=== PATIENT | female | born 1975 | race Caucasian/White ===

== ENCOUNTER 2019-01-09 14:33 | Emergency (ER) | payer OTHER ==
[~2019-01-09] VITALS: Ht 170.2 cm; Wt 86.9 kg
[~2019-01-09 14:33] MED LIST: AMOXICILLIN 50500 M1 PO; APAP/CODEINE ELI5 M1 OR; MACROBID 100 M100 M1 PO; NOHOMEMEDICATIONS; PREDNISONE 20 M20 MG PO; VENTOLIN17 GM INH; ZPAK PO
[2019-01-09] MEDS ORDERED: FLEXERIL PO (15:02)
[2019-01-09 15:12] LABS: URINE BILIRUBIN NEGATIVE (Negative); URINE BLOOD 3+ (Negative); URINE CLARITY CLEAR; URINE COLOR YELLOW; URINE GLUCOSE-RANDOM* NEGATIVE (Negative); URINE KETONES NEGATIVE (Negative); URINE LEUKOCYTES-REFLEX 2+ (Negative); URINE NITRITE-REFLEX POSITIVE (Negative); URINE PROTEIN (DIPSTICK) NEGATIVE (Negative); URINE SPECIFIC GRAVITY 1.025 (1.005-1.035); URINE UROBILINOGEN 0.2 E.U./dl (0.2-1.0)
[2019-01-09 15:15] LABS: ABSOLUTE NEUTROPHILS 8.6 thou/uL (1.4-8.2); BASOPHILS 0.2 % (0.0-2.0); EOSINOPHILS 0.9 % (0.0-3.0); HEMATOCRIT 42.2 % (37.0-47.0); HEMOGLOBIN 14.4 gm/dL (12.0-15.0); LYMPHOCYTES 21.2 % (24.0-44.0); MCHC 34.2 g/dL (28.0-37.0); MCV 96.6 fL (80.0-100.0); MONOCYTES 7.1 % (1.0-8.0); PLATELET COUNT 273 thou/uL (150-400); POLYS 70.6 % (36.0-66.0); RBC 4.37 mil/uL (4.20-5.00); RDW 12.6 % (10.5-14.5); WBC 12.2 thou/uL (4.0-11.0)
[2019-01-09 15:27] LABS: BACTERIA-REFLEX >30 Many /HPF (None Seen); CASTS None Seen /LPF (None Seen); CRYSTALS None Seen /LPF (None Seen); SQUAMOUS 4-10 Moderate /LPF (0-3); URINE RBC 0-2 Rare /HPF (0-2); URINE WBC-REFLEX >25 Many /HPF (0-5); WBC CLUMPS Few (None Seen)
[2019-01-09 15:27] LABS: CALCIUM 9.1 mg/dL (8.5-10.1); CREATININE 0.7 mg/dL (0.6-1.0); POTASSIUM 3.7 mmol/L (3.5-5.1)
[2019-01-09 15:33] LABS: ALBUMIN 3.5 g/dL (3.4-5.0); TOTAL BILIRUBIN 0.4 mg/dL (<0.1-1.0); TOTAL PROTEIN 7.4 g/dL (6.4-8.2)
[2019-01-09] MEDS ORDERED: NORCO 5-325 TA1 EAC1 PO (18:10)
[2019-01-09] MEDS ORDERED: KEFLEX500 M1 PO (18:10)
[2019-01-09 18:23] VITALS: BP 119/66
== END 2019-01-09 18:20 | disposition home or self-care (01) ==
LOC: ER 14:33
PROVIDERS: Emergency Medicine
DX: N83.292 Other ovarian cyst, left side (principal); N39.0 Urinary tract infection, site not specified; F17.210 Nicotine dependence, cigarettes, uncomplicated; Z90.89 Acquired absence of other organs

== ENCOUNTER 2020-09-26 21:44 | Emergency (ER) | payer OTHER ==
[~2020-09-26] VITALS: Ht 170.2 cm; Wt 87.1 kg
[~2020-09-26 21:44] MED LIST changes: +FLEXERIL PO; +KEFLEX500 M1 PO; +NORCO 5-325 TA1 EAC1 PO
[2020-09-26] MEDS ORDERED: ACETAMINOPHEN PO (22:35)
[2020-09-27] MEDS ORDERED: PREDNISONE50 MG PO (00:18)
[2020-09-27] MEDS ORDERED: FLEXERIL PO (00:18)
[2020-09-27 00:25] VITALS: BP 145/87
== END 2020-09-27 00:26 | disposition home or self-care (01) ==
LOC: ER 21:44
DX: M54.5 Low back pain (principal); F17.210 Nicotine dependence, cigarettes, uncomplicated; Z79.899 Other long term (current) drug therapy

== ENCOUNTER 2020-12-18 17:23 | Emergency (ER) | payer OTHER ==
[~2020-12-18] VITALS: Ht 170.2 cm; Wt 87.1 kg
[2020-12-18 17:23] VITALS: BP 152/89
[~2020-12-18 17:23] MED LIST changes: +ACETAMINOPHEN PO; +PREDNISONE50 MG PO
== END 2020-12-18 17:47 | disposition home or self-care (01) ==
LOC: ER 17:23
PROVIDERS: Emergency Medicine
DX: M79.10 Myalgia, unspecified site (principal); Z20.822 Contact with and (suspected) exposure to COVID-19; T50.B95A Adverse effect of other viral vaccines, initial encounter; F17.210 Nicotine dependence, cigarettes, uncomplicated; Z79.899 Other long term (current) drug therapy; Y92.89 Other specified places as the place of occurrence of the external cause